=== PATIENT | male | born 1945 | race African-American/Black ===

== ENCOUNTER 2020-06-26 04:31 | Day surgery (SDC) | payer BC, OTHER ==
[2020-06-25 12:26] VITALS: BMI 25.0
--- NOTE | 2020-06-26 08:22 | HP ---
History & Physical Update - History History: No Change - Physical Physical: No Change - Assessment Assessment: No Change - Plan Plan: No Change
--- NOTE | 2020-06-26 08:24 | OP ---
Operative Note - Note: Operative Date: 06/26/20 Pre-Operative Diagnosis: BPH w LUTS Operation: bipolar TURP Findings: BPH Post-Operative Diagnosis: Same as Pre-op Surgeon: Palmer Kwon Anesthesiologist/[employer] DEVELOPER: José Manuel Franco Anesthesia: Spinal Specimens Removed: prostate tissue Estimated Blood Loss (mls): 0 Drains & Tubes with Location: [address] 30 ml jones Operative Report Dictated: Yes
[2020-06-26] MEDS ORDERED: FINASTERIDE 5 MG TABLET (FP) PO SCH (10:00)
[2020-06-26 12:24] LABS: URINE APPEARANCE CLEAR; URINE BILIRUBIN NEGATIVE (NEGATIVE); URINE COLOR YELLOW; URINE GLUCOSE (UA) NEGATIVE (NEGATIVE); URINE KETONE NEGATIVE (NEGATIVE); URINE LEUK ESTERASE NEGATIVE (NEGATIVE); URINE NITRITE NEGATIVE (NEGATIVE); URINE PROTEIN NEGATIVE (NEGATIVE)
[2020-06-26] MEDS ORDERED: PROPOFOL 20 ML ONE ×2 (12:34)
[2020-06-26] MEDS ORDERED: MIDAZOLAM HCL 2 MG/2 ML SINGLE DOSE VIAL ONE ×2 (12:34→13:19)
[2020-06-26] MEDS ORDERED: ceFAZolin SODIUM 1 GM VIAL IVPB ONE (12:45)
[2020-06-26] MEDS ORDERED: DEXAMETHASONE SOD PHOSPHATE 4 MG/1 ML VIAL ONE (12:48)
[2020-06-26] MEDS ORDERED: ceFAZolin SODIUM 1 GM VIAL ONE ×2 (12:48→21:02)
[2020-06-26] MEDS ORDERED: EPHEDRINE SULFATE/0.9% NACL/PF 50 MG/10 ML SYRINGE NR ONE (12:55)
[2020-06-26] MEDS ORDERED: ONDANSETRON 4 MG/2 ML VIAL IVPUSH PRN (13:42)
[2020-06-26] MEDS ORDERED: oxyCODONE HCL 5 MG TABLET PO PRN (13:42)
--- NOTE | 2020-06-26 14:12 | OP ---
DATE OF OPERATION: 06/26/2020 PREOPERATIVE DIAGNOSIS: Benign prostatic hypertrophy with lower urinary tract symptoms. POSTOPERATIVE DIAGNOSIS: Benign prostatic hypertrophy with lower urinary tract symptoms. PROCEDURE: Transurethral resection of prostate (bipolar). SURGEON: Palmer Beck MD FINAL EXPENSE AGENT: None. ANESTHESIA: Spinal. SPECIMENS: Prostate tissue. CULTURES: None. DRAINS: A 24-Martiniquais 3-way Laird catheter, 30-mL balloon. ESTIMATED BLOOD LOSS: Negligible. COMPLICATIONS: None. DESCRIPTION OF PROCEDURE: Patient was brought in the operating room, placed on the operating table in the supine position. After administration of spinal anesthesia, intravenous antibiotics were administered. Sequential compression devices were placed. Patient was placed in the dorsal lithotomy position, and genitals and perineum were prepped and draped in the usual sterile manner. The urethral meatus was then dilated sequentially with curved sounds, 22- to 30-Martiniquais. A 26-Martiniquais resectoscope sheath with visualizing obturator was inserted in the anterior urethra under direct vision. Anterior urethra was normal. The prostatic urethra was entered, measured approximately 5 cm in length and demonstrated moderate to severe bilobar occlusion. The bladder was entered and thoroughly inspected. There were no foreign bodies, tumors, stones or inflammation. Both ureteral orifices were in their usual location with no efflux from the right ureteral orifice. The patient is status post right nephrectomy. Now the working element of the [employer] resectoscope was inserted and the TURP was then performed in the standard fashion by first creating a groove in the left lateral lobe from the area of the bladder neck to verumontanum down to the level of the capsular fibers. Then in a sequential manner the left lateral lobe was sequentially resected from the 2 to 6 oclock position from the bladder neck to verumontanum down to the level of the capsular fibers. In a similar manner the right lateral lobe of the prostate was resected. The roof of the prostate was resected, and the floor of the prostate was resected. All obstructive prostatic tissue between the bladder neck and the verumontanum was resected down to the capsular fibers. Now all resected prostatic tissue was removed from the bladder using an Ellik evacuator. Hemostasis was assured with the button. Bladder was left full, instrument removed. A 24-Martiniquais 3-way Laird catheter was inserted in the bladder, 30 mL placed in the balloon, placed on continuous bladder irrigation, return clear. He tolerated the procedure well, was transferred to the recovery room in stable condition. PALMER BECK M.D. [id number]
[2020-06-26] MEDS ORDERED: DEXTROSE 5%-WATER - 50 ML IVPB ONE (21:02)
[2020-06-26] MEDS: CEFAZOLIN 1 GM in DEXTROSE 5%-WATER - 50 ML IVPB SCH (21:29)
[2020-06-26] MEDS ORDERED: ROSUVASTATIN CA 10 MG TABLET (FP) PO SCH (22:00)
[2020-06-27 01:58] VITALS: PULSE 67
[2020-06-27] MEDS ORDERED: ceFAZolin SODIUM 1 GM VIAL ONE (05:31)
[2020-06-27] MEDS ORDERED: DEXTROSE 5%-WATER - 50 ML IVPB ONE (05:32)
[2020-06-27] MEDS: CEFAZOLIN 1 GM in DEXTROSE 5%-WATER - 50 ML IVPB SCH (05:51)
[2020-06-27 07:22] VITALS: BP 102/53; TEMP 99.1
[2020-06-27] MEDS ORDERED: CHOLECALCIFEROL (VIT D3) 1,000 UNIT (25 MCG) TABLET PO SCH (10:00)
--- NOTE | 2020-06-30 17:12 | PATH ---
Surgical Pathology Report Patient Name: NELLA BECKWITH Med. Rec. #: [id number] /Age/Gender: 1945 (Age: 74) / M Account: [id number] Location: AMBULATORY SURG Taken: 06/26/2020 Received: 06/27/2020 Reported: 06/30/2020 Physicians: Palmer Kwon M.D. Specimen(s) Received PROSTATE TISSUE Clinical History BPH Final Diagnosis PROSTATE TISSUE, TRANSURETHRAL RESECTION OF PROSTATE: BENIGN PROSTATIC TISSUE WITH PATCHY MILD CHRONIC INFLAMMATION, GLANDULAR, STROMAL AND BASAL CELL HYPERPLASIA. Comment: Immunohistochemical stains performed and interpreted at [facility] show P63 highlights basal cells. Positive and negative controls (internal if applicable) show appropriate results. Electronically Signed Guadalupe Mcneil M.D. Gross Description Received in formalin labeled "prostate tissue," is a 10 g, 8.0 x 7.5 x 0.6 cm aggregate of marcum, firm to rubbery portions of tissue, consistent with prostate chips. The specimen is entirely submitted in 9 cassettes. /06/27/2020 saudi/06/27/2020
== END 2020-06-27 07:51 | disposition home or self-care (01) ==
LOC: JASUSAT 04:31 → J8W 15:58 → JASUSAT 06-27 07:51
PROVIDERS: ATTEND Urology
PROC: 0VT08ZZ Resection of Prostate, Via Natural or Artificial Opening Endoscopic (ICD-10-PCS; principal; 2020-06-26 13:00)
DX: N40.1 Benign prostatic hyperplasia with lower urinary tract symptoms (principal)
CPT/HCPCS: 81003; 88305-TC; 88342-TC; 94760